=== PATIENT | female | born 1985 | race Two or more races ===

== ENCOUNTER 2016-09-29 20:42 | Emergency (ER) | payer MEDICAID, OTHER ==
[2016-09-29] MEDS ORDERED: CEPHALEXIN 500 MG CAPSULE PO ONE (22:36)
[2016-09-29] MEDS ORDERED: SULFAMETHOXAZOLE/TRIMETHOPRIM 800-160 MG TABLET PO ONE (22:36)
[2016-09-29] MEDS ORDERED: PROCHLORPERAZINE MALEATE 10 MG TABLET PO ONE (23:07)
--- NOTE | 2016-09-29 23:12 | ER Document Report ---
ED ENT - General Chief Complaint: Sore Throat Stated Complaint: SORE THROAT Time Seen by Provider: 09/29/16 22:23 Mode of Arrival: Ambulatory Information source: Patient Notes: 30-year-old female presented to ED for sore throat headache runny nose pain in her left wisdom tooth body aches an abscess in her left axilla she said that all of the sinus symptoms started yesterday but the abscess she noted last . TRAVEL OUTSIDE OF THE [place] IN LAST 30 DAYS: No - HPI Patient complains to provider of: Dental problem, Ear problem, Nose problem, Throat problem, Other - Abscess left axilla Onset: Other - See above note Onset/Duration: Gradual Quality of pain: Achy - Bodyaches headache, Sharp - Abscess to left axilla Severity: Moderate Pain Level: 4 Context: Recent Illness Location of pain: Ears, Jaw, Nose, Sinus, Tooth, Other - Abscess left axilla Associated symptoms: Ear pain, Headache, Runny nose, Sinus pain, Sinus drainage , Sore throat, Other Similar symptoms previously: Yes Recently seen / treated by doctor: No - Related Data Allergies/Adverse Reactions: No Known Allergies Allergy (Unverified 09/29/16 21:22) Past Medical History - General Information source: Patient - Social History Smoking Status: Never Smoker Cigarette use (# per day): No Chew tobacco use (# tins/day): No Smoking Education Provided: No Frequency of alcohol use: None Drug Abuse: None Occupation: call center Lives with: Family Family History: Arthritis, CAD, COPD, CVA, Hyperlipidemia, Hypertension, Thyroid Disfunction Patient has suicidal ideation: No Patient has homicidal ideation: No - Past Medical History Cardiac Medical History: Reports: None Pulmonary Medical History: Reports: None EENT Medical History: Reports: None Neurological Medical History: Reports: Hx Migraine Endocrine Medical History: Reports: None Renal/ Medical History: Reports: None Malignancy Medical History: Reports: None GI Medical History: Reports: None Musculoskeltal Medical History: Reports None Skin Medical History: Reports None Psychiatric Medical History: Reports: None Traumatic Medical History: Reports: None Infectious Medical History: Reports: None Past Surgical History: Reports: Hx Adenoidectomy, Hx Tonsillectomy, Hx Tubal Ligation Review of Systems - Review of Systems Constitutional: No symptoms reported EENT: No symptoms reported Cardiovascular: No symptoms reported Respiratory: No symptoms reported Gastrointestinal: No symptoms reported Genitourinary: No symptoms reported Female Genitourinary: No symptoms reported Musculoskeletal: No symptoms reported Skin: No symptoms reported Hematologic/Lymphatic: No symptoms reported Neurological/Psychological: No symptoms reported -: Yes All other systems reviewed and negative Physical Exam - Vital signs Vitals: Temp Pulse Resp BP Pulse Ox 98.4 F 74 16 103/81 100 09/29/16 21:18 09/29/16 21:18 09/29/16 21:18 09/29/16 21:18 09/29/16 21:18 Interpretation: Normal - General General appearance: Appears well, Alert - HEENT Head: Normocephalic, Atraumatic Eyes: Normal Pupils: PERRL Ears: Normal External canal: Normal Tympanic membrane: Normal Sinus: Normal Nasal: Swelling, Clear rhinorrhea Mouth/Lips: Normal Mucous membranes: Normal Teeth diagram: 1 - Swelling to the gums around the left lower wisdom tooth #17 Pharynx: Post nasal drainage Neck: Normal - Respiratory Respiratory status: No respiratory distress Chest status: Nontender Breath sounds: Normal Chest palpation: Normal - Cardiovascular Rhythm: Regular Heart sounds: Normal auscultation Murmur: No - Abdominal Inspection: Normal Distension: No distension Bowel sounds: Normal Tenderness: Nontender Organomegaly: No organomegaly - Back Back: Normal, Nontender - Extremities General upper extremity: Normal inspection, Nontender, Normal color, Normal ROM , Normal temperature General lower extremity: Normal inspection, Nontender, Normal color, Normal ROM , Normal temperature, Normal weight bearing. No: Jose's sign - Neurological Neuro grossly intact: Yes Cognition: Normal Orientation: AAOx4 [place] Coma Scale Eye Opening: Spontaneous [place] Coma Scale Verbal: Oriented [place] Coma Scale Motor: Obeys Commands [place] Coma Scale Total: 15 Speech: Normal Motor strength normal: LUE, RUE, LLE, RLE Sensory: Normal - Psychological Associated symptoms: Normal affect, Normal mood - Skin Skin Temperature: Warm Skin Moisture: Dry Skin Color: Normal Skin irregularity: Abscess - Very minimal abscess in the left axilla Irregularity with: Swelling, Tenderness, Warmth Course - Re-evaluation Re-evalutation: 09/30/16 03:33 Instructed patient on use of warm compresses to the area as well as washing the area well with soap and water. Please refrain from using any scented products in this area until the abscess is healed. Recommended Dial soap as it is antibacterial. We'll start patient on Bactrim and Keflex. Patient also given Compazine instructed to take Benadryl when she gets home or a headache. Patient also given a prescription for Compazine for her to take with Benadryl and ibuprofen when she gets a migraine in the future. - Vital Signs Vital signs: Temp Pulse Resp BP Pulse Ox 97.4 F 64 17 107/66 100 09/29/16 23:27 09/29/16 23:27 09/29/16 23:27 09/29/16 23:27 09/29/16 23:27 Discharge - Discharge Clinical Impression: Sore throat, Abscess of left axilla, dental pain wisdom tooth URI (upper respiratory infection) Qualifiers: URI type: unspecified URI Qualified Code(s): J06.9 - Acute upper respiratory infection, unspecified Headache Qualifiers: Headache type: unspecified Headache chronicity pattern: unspecified pattern Intractability: not intractable Qualified Code(s): R51 - Headache Condition: Stable Disposition: HOME, SELF-CARE Instructions: Family Physicians / Practices, Dentist Additional Instructions: SORE THROAT: Sore throats may be caused by viruses, bacteria, or fungi. Most are due to a virus, and must get better on their own. Bacterial sore throats, particularly those due to "strep," need treatment with antibiotics. If an antibiotic is prescribed, be sure to take the medication for a full 10 days. Failure to take the antibiotic can result in complications such as rheumatic fever. Sometimes, an injection of antibiotics is given instead of pills or liquid. This single "shot" is equal in effectiveness to the oral medication. To relieve symptoms, take acetaminophen for pain. Sip clear liquids frequently, or eat popsicles or ice chips. Anesthetic sprays or lozenges may help. Make sure the air in the room is not too dry. Avoid using decongestants or antihistamines. Call the doctor if there is no improvement in two days, or if you have difficulty breathing, increasing throat pain, high fever, rash, or frequent vomiting. TOOTHACHE: Your pain is crowding of teeth. The tooth must be repaired in order for you to feel better. You will, therefore, be referred to a dentist. We do not have dentists on the staff at [facility]. Severe swelling or drainage around a tooth usually means a dental abscess. This also requires evaluation and treatment by the dentist, but antibiotics may be prescribed while awaiting dental treatment. You should be rechecked immediately if you develop major swelling of the face, increasing pain, a lump in the jaw or gums, headache, difficulty swallowing, or fever. VIRAL SYNDROME: The physician has diagnosed a likely viral infection. Viruses not only cause "colds," but can cause many different symptoms including generalized aching, fever, headache, cough, diarrhea, nausea, vomiting, and fatigue. The treatment, for the most part, is simply relief of symptoms. This means that antibiotics are usually not given. Rest, fluids, pain medications and, occasionally, medication for the specific symptoms that are most bothersome will be prescribed. Use good handwashing to avoid passing the virus to others. Shared toys should be cleaned with disinfectant. Clean the toilets, sinks, and counter surfaces in bathrooms. Launder clothing in hot water. Contact the physician if you develop any new or unusual symptoms such as severe headache, stiff neck, high fever, chest pain, productive cough, or shortness of breath. You should be rechecked if you don't see marked improvement within seven to 10 days. ABSCESS: You have an abscess (boil). This a pus-forming infection, usually due to staph. Some boils may be left to drain on their own, but most require lancing. From the time the tender lump first appears, it may be three or four days before the abscess is ready to shelby. Local heat and rest help at this stage of treatment. An antibiotic may prevent spread of the infection. Once the abscess is opened, packing may be placed into it. This is done so pus is not sealed inside by premature closure of the cavity. The packing will be removed at your follow-up visit or you may be advised to remove it yourself at home. Sometimes this packing must be replaced a few times during healing. The wound will heal with surprisingly little scar. Depending on the size and location of an abscess, healing can take one to four weeks. You may shower and wash the area around the incision site two or three times a day. Antibiotics may be prescribed, but are usually not necessary after an abscess has been drained. If you develop fever, chills, worsening pain, or increasing swelling in the area, call the doctor or return immediately. CEPHALEXIN: The antibiotic you've been prescribed is a member of the cephalosporin class. This type of antibiotic covers a wide variety of infections, including those of the skin, lungs, and urinary tract. It's useful for staph infections. This antibiotic is slightly similar to the penicillin family. In rare cases , a person who is allergic to penicillin will also be allergic to this medication. If you have had a severe allergic reaction to penicillin, and have not taken this antibiotic since that time, notify your doctor. Antibiotics which cover many germs ("broad spectrum" antibiotics) are more likely to cause diarrhea or "yeast" infections. Women prone to vaginal yeast problems may suffer an attack after taking this antibiotic. In infants, oral thrush (white spots "stuck" on the cheek) or yeast diaper rash may result. See your doctor if these problems occur. Call at once if you develop itching, hives , shortness of breath, or lightheadedness. TRIMETHOPRIM-SULFA: You have been given a prescription for trimethoprim-sulfa (TMS, Septra, Bactrim). This is a combination antibiotic of the sulfa class, often used for urinary tract infections, middle ear infections, bronchitis, shigella intestinal infection, and Pneumocystis pneumonia. TMS is usually well-tolerated. Occasional side effects include nausea and decreased appetite. Septra is not recommended for infants less than two months of age. Do not take this medication if you have experienced severe side effects or allergy to sulfa medicine. You should stop this medicine at once and contact your physician if you develop any rash, joint pain, shortness of breath, bruising, or jaundice ( yellow color in the skin), or if you develop any other new or unusual symptoms. USE OF ACETAMINOPHEN (Tylenol): Acetaminophen may be taken for pain relief or fever control. It's much safer than aspirin, offering a wider range of "safe" dosages. It is safe during . Some brand names are Tylenol, Panadol, Datril, Anacin 3, Tempra, and Liquiprin. Acetaminophen can be repeated every four hours. The following are maximum recommended dosages: WEIGHT Dose Drops Elixir Chewable( 80mg) (LBS.) drprs=droppers tsp=teaspoon 6 40 mg 0.4 ml (1/2) 6-11 80 mg 0.8 ml (full) tsp 1 tab 12-16 120 mg 1 1/2 drprs 3/4 tsp 1 1/2 tabs 17-23 160 mg 2 drprs 1 tsp 2 tabs 24-30 240 mg 3 drprs 1 1/2 tsp 3 tabs 30-35 320 mg 2 tsp 4 tabs 36-41 360 mg 2 1/4 tsp 4 1/2 tabs 42-47 400 mg 2 1/2 tsp 5 tabs 48-53 480 mg 3 tsp 6 tabs 54-59 520 mg 3 1/4 tsp 6 1/2 tabs 60-64 560 mg 3 1/2 tsp 7 tabs 65-70 600 mg 3 3/4 tsp 7 1/2 tabs 71-76 640 mg 4 tsp 8 tabs 77-82 720 mg 4 1/2 tsp 9 tabs 83-88 800 mg 5 tsp 10 tabs >89 pounds or adults 650 mg to 900 mg Acetaminophen can be repeated every four hours. Maximum dose not to exceed 4000 mg a day. These maximum recommended dosages are slightly higher than the dosages written on the product container, but these dosages are very safe and below the toxic dosage for acetaminophen. FOLLOW-UP CARE: If you have been referred to a physician for follow-up care, call the physician s office for an appointment as you were instructed or within the next two days. If you experience worsening or a significant change in your symptoms, notify the physician immediately or return to the Emergency Department at any time for re-evaluation. Prescriptions: Prochlorperazine Maleate [Compazine 10 mg Tablet] 10 mg PO Q6HP PRN #10 tablet PRN Reason: Cephalexin Monohydrate [Keflex 500 mg Capsule] 500 mg PO QID #20 capsule Sulfamethoxazole/Trimethoprim [Septra-Ds 800-160 mg Tablet] 1 tab PO BID #14 tablet Forms: Return to Work
[2016-09-29 23:31] VITALS: BP 107/66
== END 2016-09-29 23:30 | disposition home or self-care (01) ==
LOC: ER 20:42
DX: J02.9 Acute pharyngitis, unspecified (principal); L02.412 Cutaneous abscess of left axilla; K08.89 Other specified disorders of teeth and supporting structures; J06.9 Acute upper respiratory infection, unspecified; R51 Headache; H92.09 Otalgia, unspecified ear
CPT/HCPCS: 99283; 87070; 87880; S0183; J3490

== ENCOUNTER 2017-04-12 15:51 | Emergency (ER) | payer SELFPAY ==
--- NOTE | 2017-04-12 16:45 | ER Document Report ---
ED Medical Screen (RME) - General Chief Complaint: Abdominal and back pain Stated Complaint: ABDOMINAL,BACK PAIN Time Seen by Provider: 04/12/17 16:44 Notes: Patient states she has a painful lump on her right low back, she has sore throat and congestion and swollen adenoids. She also states she has some vaginal discharge and is concerned about a 60 transmitted disease. TRAVEL OUTSIDE OF THE [place] IN LAST 30 DAYS: No - Related Data Allergies/Adverse Reactions: No Known Allergies Allergy (Verified 03/16/17 20:27) Past Medical History - Social History Chew tobacco use (# tins/day): No Frequency of alcohol use: None Drug Abuse: None Neurological Medical History: Reports: Hx Migraine Renal/ Medical History: Denies: Hx Peritoneal Dialysis Past Surgical History: Reports: Hx Adenoidectomy, Hx Tonsillectomy, Hx Tubal Ligation - Immunizations Immunizations up to date: Yes Hx Diphtheria, Pertussis, Tetanus Vaccination: Yes Physical Exam - Vital signs Vitals: Temp Pulse Resp BP Pulse Ox 98.6 F 80 16 123/69 99 04/12/17 15:57 04/12/17 15:57 04/12/17 15:57 04/12/17 15:57 04/12/17 15:57 Course - Vital Signs Vital signs: Temp Pulse Resp BP Pulse Ox 98.6 F 80 16 123/69 99 04/12/17 15:57 04/12/17 15:57 04/12/17 15:57 04/12/17 15:57 04/12/17 15:57
[2017-04-12 17:10] LABS: ABSOLUTE BASOPHILS # (AUTO) 0.1 10^3/uL (0.0-0.2); ABSOLUTE EOSINOPHILS # (AUTO) 0.2 10^3/uL (0.0-0.6); ABSOLUTE LYMPHOCYTES (AUTO) 2.1 10^3/uL (0.5-4.7); ABSOLUTE MONOCYTES (AUTO) 0.7 10^3/uL (0.1-1.4); ABSOLUTE NEUT (AUTO) 6.5 10^3/uL (1.7-8.2); BASOPHILS % (AUTO) 0.9 % (0-2); EOSINOPHILS % (AUTO) 2.2 % (0-6); HEMATOCRIT 40.2 % (36.0-47.0); HGB HCT DIFFERENCE 1.8; LYMPHOCYTES % (AUTO) 21.4 % (13-45); MEAN CORPUSCULAR HEMOGLOBIN 29.4 pg (27.0-33.4); MEAN CORPUSCULAR HGB CONC 34.7 g/dL (32.0-36.0); MEAN CORPUSCULAR VOLUME 85 fl (80-97); MONOCYTES % (AUTO) 7.7 % (3-13); RED BLOOD COUNT 4.75 10^6/uL (3.72-5.28); RED CELL DISTRIBUTION WIDTH 13.6 % (11.5-14.0); SEGMENTED NEUTROPHILS % (AUTO) 67.8 % (42-78); WHITE BLOOD COUNT 9.6 10^3/uL (4.0-10.5)
[2017-04-12] MEDS ORDERED: KETOROLAC TROMETHAMINE 60 MG/2 ML SDV IM ONE (17:19)
[2017-04-12] MEDS ORDERED: ONDANSETRON 4 MG TAB.RAPDIS SL ONE (17:19)
[2017-04-12 17:22] LABS: APPEARANCE,URINE CLEAR; BILIRUBIN,URINE NEGATIVE (NEGATIVE); GLUCOSE, URINE NEGATIVE (NEGATIVE); KETONES,URINE NEGATIVE (NEGATIVE); LEUKOCYTE ESTERASE,URINE NEGATIVE (NEGATIVE); NITRITE,URINE NEGATIVE (NEGATIVE); PROTEIN,URINE NEGATIVE (NEGATIVE); URINE SPECIFIC GRAVITY 1.017; UROBILINOGEN,URINE NEGATIVE mg/dL (<2.0)
[2017-04-12 17:34] LABS: ALANINE AMINOTRANSFERASE 30 U/L (9-52); ALBUMIN 4.6 g/dL (3.5-5.0); ALKALINE PHOSPHATASE 64 U/L (38-126); ANION GAP 13 (5-19); ASPARTATE AMINO TRANSFERASE 17 U/L (14-36); BILIRUBIN,DIRECT 0.2 mg/dL (0.0-0.4); BILIRUBIN,TOTAL 0.4 mg/dL (0.2-1.3); BLOOD UREA NITROGEN 10 mg/dL (7-20); CALCIUM 9.3 mg/dL (8.4-10.2); CARBON DIOXIDE 29 mmol/L (22-30); CHLORIDE 103 mmol/L (98-107); CREATININE RESULT 0.76 mg/dL (0.52-1.25); GLUCOSE 88 mg/dL (75-110); POTASSIUM 4.1 mmol/L (3.6-5.0); SODIUM 144.7 mmol/L (137-145); TOTAL PROTEIN 7.5 g/dL (6.3-8.2)
[2017-04-12] MEDS ORDERED: IBUPROFEN 600 MG TABLET PO ONE (17:51)
[2017-04-12] MEDS ORDERED: METRONIDAZOLE 500 MG TABLET PO ONE (17:51)
--- NOTE | 2017-04-12 17:53 | RADIOLOGY REPORT (SQ) ---
EXAM DESCRIPTION: CHEST PA/LAT COMPLETED DATE/TIME: 04/12/2017 5:44 pm REASON FOR STUDY: cough COMPARISON: None. EXAM PARAMETERS: NUMBER OF VIEWS: two views TECHNIQUE: Digital Frontal and Lateral radiographic views of the chest acquired. RADIATION DOSE: NA LIMITATIONS: none FINDINGS: LUNGS AND PLEURA: No opacities, masses or pneumothorax. No pleural effusion. MEDIASTINUM AND HILAR STRUCTURES: No masses or contour abnormalities. HEART AND VASCULAR STRUCTURES: Heart normal size. No evidence for failure. BONES: No acute findings. HARDWARE: None in the chest. OTHER: No other significant finding. IMPRESSION: NO SIGNIFICANT RADIOGRAPHIC FINDING IN THE CHEST. TECHNICAL DOCUMENTATION: JOB ID: [id number]- All Rights Reserved
[2017-04-12 20:12] LABS: CHLAM PCR NOT DETECTED (NOT DETECT)
--- NOTE | 2017-04-12 20:40 | ER Document Report ---
ED General - General Chief Complaint: Abdominal and back pain Stated Complaint: ABDOMINAL,BACK PAIN Time Seen by Provider: 04/12/17 16:44 Mode of Arrival: Ambulatory Information source: Patient TRAVEL OUTSIDE OF THE [place] IN LAST 30 DAYS: No - HPI Patient complains to provider of: Back pain, right side pain, congestion, fever , vomiting and diarrhea Onset: Last week Onset/Duration: Gradual Quality of pain: Achy Severity: Moderate Pain Level: 3 Associated symptoms: Body/muscle aches, Chills, Productive cough, Diarrhea, Fever, Nausea, Vomiting Exacerbated by: Denies Relieved by: Denies Similar symptoms previously: Yes Recently seen / treated by doctor: Yes - 1 month ago Notes: Patient is a 31-year-old female who presents to the emergency room today with a multitude of complaints which include right lower back pain with "knot in low back", cough, cold, congestion, swollen lymph nodes, fever of 102 yesterday, cough is nonproductive, vomiting and diarrhea yesterday, and vaginal discharge with an odor this been going on for the past few days, she was seen in this department approximately 1 month ago and placed on antibiotics for treatment of urinary tract infection which she reports she has not really had any relief from where she is also requesting testing for sexually transmitted disease - Related Data Allergies/Adverse Reactions: No Known Allergies Allergy (Verified 03/16/17 20:27) Past Medical History - General Information source: Patient - Social History Smoking Status: Never Smoker Chew tobacco use (# tins/day): No Frequency of alcohol use: None Drug Abuse: None Family History: Arthritis, CAD, COPD, CVA, Hyperlipidemia, Hypertension, Thyroid Disfunction Patient has suicidal ideation: No Patient has homicidal ideation: No Neurological Medical History: Reports: Hx Migraine Renal/ Medical History: Denies: Hx Peritoneal Dialysis Past Surgical History: Reports: Hx Adenoidectomy, Hx Tonsillectomy, Hx Tubal Ligation - Immunizations Immunizations up to date: Yes Hx Diphtheria, Pertussis, Tetanus Vaccination: Yes Review of Systems - Review of Systems Constitutional: Chills, Fever EENT: See HPI Cardiovascular: No symptoms reported Respiratory: See HPI Gastrointestinal: See HPI Genitourinary: See HPI Female Genitourinary: See HPI Musculoskeletal: See HPI Skin: No symptoms reported Hematologic/Lymphatic: No symptoms reported Neurological/Psychological: No symptoms reported -: Yes All other systems reviewed and negative Physical Exam - Vital signs Vitals: Temp Pulse Resp BP Pulse Ox 98.6 F 80 16 123/69 99 04/12/17 15:57 04/12/17 15:57 04/12/17 15:57 04/12/17 15:57 04/12/17 15:57 Interpretation: Normal - General General appearance: Appears well, Alert In distress: None - HEENT Head: Normocephalic, Atraumatic Eyes: Normal Conjunctiva: Normal Extraocular movements intact: Yes Eyelashes: Normal Pupils: PERRL Ears: Normal Sinus: Normal Nasal: Clear rhinorrhea Mouth/Lips: Normal Mucous membranes: Normal Pharynx: Normal Neck: Lymphadenopathy - Respiratory Respiratory status: No respiratory distress Chest status: Nontender Breath sounds: Normal Chest palpation: Normal - Cardiovascular Rhythm: Regular Heart sounds: Normal auscultation Murmur: No - Abdominal Inspection: Normal Distension: No distension Bowel sounds: Normal Tenderness: Nontender Organomegaly: No organomegaly - Genitourinary External exam: Normal Speculum exam: Vaginal discharge - Green frothy discharge with fishy odor Vaginal bleeding: None Bimanuel exam: Normal - Back Back: Normal, Tender - Tender to palpate in the right lumbar paraspinal musculature with slight muscle tension in the piriformis correlating to where patient states she has "knot" - Extremities General upper extremity: Normal inspection, Nontender, Normal color, Normal ROM , Normal temperature General lower extremity: Normal inspection, Nontender, Normal color, Normal ROM , Normal temperature, Normal weight bearing. No: Jose's sign - Neurological Neuro grossly intact: Yes Cognition: Normal Orientation: AAOx4 [place] Coma Scale Eye Opening: Spontaneous [place] Coma Scale Verbal: Oriented [place] Coma Scale Motor: Obeys Commands [place] Coma Scale Total: 15 Speech: Normal Motor strength normal: LUE, RUE, LLE, RLE Sensory: Normal - Psychological Associated symptoms: Normal affect, Normal mood - Skin Skin Temperature: Warm Skin Moisture: Dry Skin Color: Normal Course - Re-evaluation Re-evalutation: 04/12/17 22:31 Lab findings were discussed with patient at bedside which are unremarkable, physical exam findings are consistent with bacterial vaginosis, patient was started on Flagyl, advised to follow-up with primary care provider or return if symptoms worsen, patient acknowledges understanding and agreement with this plan - Vital Signs Vital signs: Temp Pulse Resp BP Pulse Ox 98.6 F 72 16 112/55 L 98 04/12/17 20:51 04/12/17 20:51 04/12/17 20:51 04/12/17 20:51 04/12/17 20:51 - Laboratory Result Diagrams: 04/12/17 16:59 04/12/17 16:59 Laboratory results interpreted by me: 04/12/17 17:06 Urine Ascorbic Acid 40 H - Diagnostic Test Radiology reviewed: Image reviewed, Reports reviewed Discharge - Discharge Clinical Impression: Bacterial vaginosis Condition: Stable Disposition: HOME, SELF-CARE Instructions: Antibiotic Therapy ([facility]), Metronidazole ([facility]), [employer], Vaginosis, Bacterial ([facility]) Additional Instructions: Follow up with your primary care provider in one to 2 days. Return to the emergency room immediately if symptoms worsen or any additional concerns. Prescriptions: Ibuprofen [Motrin 600 Mg Tablet] 600 mg PO TID #30 tablet Metronidazole [Flagyl 500 mg Tablet] 500 mg PO TID #30 tablet
[2017-04-12 20:52] VITALS: BP 112/55
== END 2017-04-12 20:52 | disposition home or self-care (01) ==
LOC: ER 15:51
DX: N76.0 Acute vaginitis (principal); B96.89 Other specified bacterial agents as the cause of diseases classified elsewhere; R50.9 Fever, unspecified; R11.10 Vomiting, unspecified; R19.7 Diarrhea, unspecified; M54.5 Low back pain; R05 Cough; J34.89 Other specified disorders of nose and nasal sinuses; Z87.440 Personal history of urinary (tract) infections; Z98.51 Tubal ligation status
CPT/HCPCS: 99284; 96372; 36415; 87210; 85025; 81025; 80053; 81001; 87491; 87591; 71020; J1885; S0119

== ENCOUNTER 2018-04-23 04:50 | Emergency (ER) | payer MEDICAID ==
[2018-04-23] MEDS ORDERED: ACETAMINOPHEN 325 MG TABLET PO ONE (05:32)
--- NOTE | 2018-04-23 05:56 | RADIOLOGY REPORT (SQ) ---
CLINICAL DATA: 32-year-old female status post fall TECHNICAL DATA: Multiple high-resolution thin axial CT images were performed through the cervical spine followed by sagittal and coronal reconstructed images. The CT study is performed according to ALARA (as low as reasonably achievable) or ALARA/IMAGE GENTLY, with automatic adjustment of mA and/or kV according to patient size. Performed on: 04/23/2018 at 5:40 AM COMPARISONS: None. FINDINGS: The cervical vertebrae are normal in height. There is straightening and very slight reversal of the normal cervical lordosis. The disc spaces are well preserved in height. Bone mineralization is normal. The atlanto-axial articulation is preserved and the odontoid process is intact. There is normal alignment of the facet joints on the parasagittal images. There are no significant degenerative changes of the cervical spine. There is no evidence of acute fracture or subluxation. There is no significant canal stenosis. There is no significant neural foraminal stenosis. The paravertebral and paraspinal soft tissues are unremarkable. The lung apices are clear. IMPRESSION: 1. No evidence of acute osseous injury involving the cervical spine. 2. There is straightening and slight reversal of the normal cervical lordosis which can be seen with muscle spasm or patient positioning.
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
--- NOTE | 2018-04-23 05:58 | RADIOLOGY REPORT (SQ) ---
EXAM DESCRIPTION: CT HEAD WITHOUT IV CONTRAST COMPLETED DATE/TME: 04/23/2018 05:29 CLINICAL HISTORY: 32 years, Female, pain, fall COMPARISON: None. TECHNIQUE: 177 Images stored on PACS. All CT scanners at this facility use dose modulation, iterative reconstruction, and/or weight based dosing when appropriate to reduce radiation dose to as low as reasonably achievable (ALARA). [facility]: Dose Right [facility]: CareDose [facility]: Dose Right [facility]: Teradose 4D [facility]: [employer] LIMITATIONS: None. FINDINGS: The globes are intact. The paranasal sinuses and mastoid air cells are unremarkable. There is no displaced or depressed skull fracture. There is no intra or extra-axial hemorrhage. CT is limited for evaluation of acute infarct. No CT evidence for large or territorial acute infarct. No mass or midline shift. IMPRESSION: Negative exam TECHNICAL DOCUMENTATION: Quality ID # [id number]: Final reports with documentation of one or more dose reduction techniques (e.g., Automated exposure control, adjustment of the mA and/or kV according to patient size, use of iterative reconstruction technique) copyright 2011 [employer]- All Rights Reserved
--- NOTE | 2018-04-23 06:21 | RADIOLOGY REPORT (SQ) ---
EXAM DESCRIPTION: XR RIBS BILATERAL WITH CHEST COMPLETED DATE/TME: 04/23/2018 05:29 CLINICAL HISTORY: 32 years, Female, pain COMPARISON: None. NUMBER OF VIEWS: Frontal view the chest with 5 views of the bilateral ribs TECHNIQUE: View the chest and 5 views of bilateral ribs LIMITATIONS: None. FINDINGS: Heart size is normal. Lungs are clear. No pneumothorax. Negative for rib fracture. Soft tissues are unremarkable IMPRESSION: Negative exam copyright 2010 [employer]- All Rights Reserved
[2018-04-23] MEDS ORDERED: KETOROLAC TROMETHAMINE 60 MG/2 ML SDV IM ONE (06:31)
[2018-04-23 06:49] VITALS: BP 121/84
== END 2018-04-23 07:12 | disposition home or self-care (01) ==
LOC: ER 04:50
DX: S00.03XA Contusion of scalp, initial encounter (principal); S40.022A Contusion of left upper arm, initial encounter; S40.021A Contusion of right upper arm, initial encounter; S80.12XA Contusion of left lower leg, initial encounter; S80.11XA Contusion of right lower leg, initial encounter; R51 Headache; R07.81 Pleurodynia; M54.2 Cervicalgia; W18.2XXA Fall in (into) shower or empty bathtub, initial encounter; Z91.013 Allergy to seafood; F17.210 Nicotine dependence, cigarettes, uncomplicated
CPT/HCPCS: 99284; 96372; 71111; 70450; 72125; J1885

== ENCOUNTER 2018-05-03 02:29 | Emergency (ER) | payer OTHER, MEDICAID ==
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
== END 2018-05-03 02:55 ==
LOC: ER 02:29
DX: F10.129 Alcohol abuse with intoxication, unspecified (principal); R45.6 Violent behavior
CPT/HCPCS: 99284

== ENCOUNTER 2019-02-04 16:48 | Emergency (ER) | payer MEDICAID, OTHER ==
[2019-02-04 16:56] VITALS: BP 136/65
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
[2019-02-04] MEDS ORDERED: HYDROCODONE/ACETAMINOPHEN 5-325 MG (6 TAB/ER DISP) PO PRN (20:41)
[2019-02-04] MEDS ORDERED: CYCLOBENZAPRINE HCL 10 MG TABLET PO ONE (20:41)
[2019-02-04] MEDS ORDERED: OXYCODONE-ACETAMINOPHEN 5-325 MG TABLET PO ONE (20:41)
[2019-02-04] MEDS ORDERED: ONDANSETRON ODT 4 MG TAB (6 TAB/ER DISP) PO PRN (20:41)
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
== END 2019-02-04 20:55 | disposition home or self-care (01) ==
LOC: ER 16:48
DX: S93.402A Sprain of unspecified ligament of left ankle, initial encounter (principal); S40.022A Contusion of left upper arm, initial encounter; S40.021A Contusion of right upper arm, initial encounter; M79.601 Pain in right arm; M79.602 Pain in left arm; M54.2 Cervicalgia; M25.572 Pain in left ankle and joints of left foot; Y04.2XXA Assault by strike against or bumped into by another person, initial encounter; Y08.89XA Assault by other specified means, initial encounter; F17.200 Nicotine dependence, unspecified, uncomplicated; F12.10 Cannabis abuse, uncomplicated
CPT/HCPCS: 73610; 70450; 70486; 72125; L0120; L4350; 99284

== ENCOUNTER 2019-11-06 11:13 | Emergency (ER) | payer OTHER, MEDICAID ==
[2019-11-06] MEDS ORDERED: MORPHINE SULFATE 10 MG/ML INJ IV ONE (11:48)
[2019-11-06] MEDS ORDERED: ONDANSETRON HCL INJ/PF 4 MG/2 ML SDV IV ONE (11:48)
--- NOTE | 2019-11-06 11:58 | ER Document Report ---
ED GI/ - General Chief Complaint: Nausea/Vomiting Stated Complaint: NAUSEA/VOMITING Time Seen by Provider: 11/06/19 11:23 Notes: CHIEF COMPLAINT: Left lower quadrant pain HPI: 33-year-old female presenting to the emergency department complaining of progressively worsening left lower quadrant pain also with left upper quadrant pain and some nausea vomiting today. Patient had a LEEP procedure September 25, states she felt fine over the initial first 2 to 3 weeks but has been having progressively worsening pain in the left lower quadrant left pelvis region. No abnormal vaginal bleeding or discharge. Patient has not had a fever. She has not seen her FOLDER MACHINE OPERATOR for reevaluation. States she had the procedure done at [facility]. ROS: See HPI - all other systems were reviewed and are otherwise negative Constitutional: no fever or recent illness Eyes: no drainage, no blurred vision ENT: no runny nose, no sore throat Cardiovascular: no chest pain Resp: no SOB, no cough GI: + vomiting, no diarrhea, positive abdominal pain and pelvic pain : no dysuria, no vaginal discharge Integumentary: no rash Allergy: no hives Musculoskeletal: no extremity pain or swelling Neurological: no numbness/tingling, no weakness MEDICATIONS: I agree with the patient medications as charted by the RN. ALLERGIES: I agree with the allergies as charted by the RN. PAST MEDICAL HISTORY/PAST SURGICAL HISTORY: Reviewed and agree as charted by RN. SOCIAL HISTORY: Reviewed and agree as charted by RN. FAMILY HISTORY: No significant familial comorbid conditions directly related to patient complaint EXAM: Reviewed vital signs as charted by RN. CONSTITUTIONAL: Alert and oriented and responds appropriately to questions. Well-appearing; well-nourished HEAD: Normocephalic; atraumatic EYES: PERRL; Conjunctivae clear, sclerae non-icteric ENT: normal nose; no rhinorrhea; moist mucous membranes; pharynx without lesions noted NECK: Supple without meningismus; non-tender; no cervical lymphadenopathy, no masses CARD: RRR; no murmurs, no clicks, no rubs, no gallops; symmetric distal pulses RESP: Normal chest excursion without splinting or tachypnea; breath sounds clear and equal bilaterally; no wheezes, no rhonchi, no rales, pulse oximetry 98% on room air not hypoxic ABD/GI: Normal bowel sounds; non-distended; soft, there is some tenderness in the left upper quadrant region but moderate tenderness in the left lower quadrant region on palpation, no rebound, no guarding; no palpable organomegaly or masses : 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 External genitalia normal. No skin lesions noted. Pelvic Exam: No active bleeding. Small amount of a thin white discharge. Cervix appears normal. Mild cMT. No lesions or masses. Uterus normal size and mildly tender. Right/Left adnexa normal size and moderately tender on the left BACK: The back appears normal and is non-tender to palpation, there is no CVA tenderness EXT: Normal ROM in all joints; non-tender to palpation; no cyanosis, no effusions, no edema SKIN: Normal color for age and race; warm; dry; good turgor; no acute lesions noted NEURO: Moves all extremities equally; Motor and sensory function intact PSYCH: The patient's mood and manner are appropriate. Grooming and personal hygiene are appropriate. MDM: 33-year-old female left pelvic pain over the last 3 to 4 days, had a LEEP procedure done 6 weeks ago and had felt fine for 2 to 3 weeks afterwards. Will initially obtain pelvic ultrasound to evaluate left ovary and ovarian structures. She has mild tenderness in the left upper quadrant region if ultrasound does not show definitive reason for her discomfort will proceed with CT TRAVEL OUTSIDE OF THE [place] IN LAST 30 DAYS: No - Related Data Allergies/Adverse Reactions: No Known Allergies Allergy (Verified 03/16/17 20:27) Past Medical History - Social History Smoking Status: Unknown if Ever Smoked Family History: Arthritis, CAD, COPD, CVA, Hyperlipidemia, Hypertension, Thyroid Disfunction Neurological Medical History: Reports: Hx Migraine Renal/ Medical History: Denies: Hx Peritoneal Dialysis Psychiatric Medical History: Reports: Hx Depression Past Surgical History: Reports: Hx Adenoidectomy, Hx Tonsillectomy, Hx Tubal Ligation - Immunizations Immunizations up to date: Yes Hx Diphtheria, Pertussis, Tetanus Vaccination: Yes Physical Exam - Vital signs Vitals: Temp 98.1 F 11/06/19 11:14 Course - Re-evaluation Re-evalutation: 11/06/19 13:29 U/S does not show definitive reason for the patient's pain, will proceed with CT 11/06/19 15:40 CT does not show definitive abnormalities that would suggest a definitive cause for pain. This was discussed with the patient. She does have vaginitis we will place her on Flagyl. We will write her a short course of pain medication and anti-inflammatories refer back to her FOLDER MACHINE OPERATOR at the health department for reevaluation she is in agreement with this plan return instructions discussed - Vital Signs Vital signs: Temp Pulse Resp BP Pulse Ox 98.3 F 92 17 114/62 98 11/06/19 11:47 11/06/19 11:47 11/06/19 11:47 11/06/19 11:47 11/06/19 11:47 - Laboratory Result Diagrams: 11/06/19 12:00 11/06/19 12:00 Laboratory results interpreted by me: 11/06/19 11/06/19 12:00 12:00 WBC 12.0 H Lymph % (Auto) 12.9 L [place] % (Auto) 2.5 L Absolute Neuts (auto) 10.1 H Seg Neutrophils % 84.0 H Calcium 10.3 H Total Protein 9.3 H Albumin 5.6 H Discharge - Discharge Clinical Impression: Abdominal pain, left lower quadrant, Pelvic pain in female, Bacterial vaginitis Condition: Stable Disposition: HOME, SELF-CARE Additional Instructions: Medication as prescribed, take the Flagyl for the vaginitis. Take the pain medications as prescribed no driving if taking narcotics for pain. Follow-up closely with your FOLDER MACHINE OPERATOR at the health department for further evaluation and treatment of her symptoms call for appointment return for onset of fever greater than 101 or worsening symptoms Prescriptions: Tramadol HCl [Ultram 50 mg Tablet] 50 mg PO Q6HP PRN #12 tab PRN Reason: Metronidazole [Flagyl 500 mg Tablet] 500 mg PO BID #14 tablet Diclofenac Sodium [Voltaren 50 Mg Tablet.Dr] 50 mg PO BID #20 tablet. Referrals: JESSY CROFT MD [ACTIVE STAFF] - Follow up as needed
[2019-11-06 12:26] LABS: ABSOLUTE BASOPHILS # (AUTO) 0.1 10^3/uL (0.0-0.2); ABSOLUTE LYMPHOCYTES (AUTO) 1.5 10^3/uL (0.5-4.7); ABSOLUTE MONOCYTES (AUTO) 0.3 10^3/uL (0.1-1.4); ABSOLUTE NEUT (AUTO) 10.1 10^3/uL (1.7-8.2); BASOPHILS % (AUTO) 0.5 % (0-2); EOSINOPHILS % (AUTO) 0.1 % (0-6); HEMATOCRIT 43.3 % (36.0-47.0); HEMOGLOBIN 14.7 g/dL (12.0-15.5); LYMPHOCYTES % (AUTO) 12.9 % (13-45); MEAN CORPUSCULAR HEMOGLOBIN 29.4 pg (27.0-33.4); MEAN CORPUSCULAR VOLUME 86 fl (80-97); MONOCYTES % (AUTO) 2.5 % (3-13); PLATELET COUNT 344 10^3/uL (150-450); RED BLOOD COUNT 5.01 10^6/uL (3.72-5.28); RED CELL DISTRIBUTION WIDTH 13.8 % (11.5-14.0); TOTAL CELLS COUNTED % (AUTO) 100 %
[2019-11-06 12:40] LABS: BACTERIA (WET MOUNT) 4+ BACTERIA SEEN; EPITHELIALS (WET MOUNT) 3+ EPITHELIALS SEEN; RBCS (WET MOUNT) NO RBCS SEEN; T.VAGINALIS (WET MOUNT) NO TRICHOMONAS SEEN; WBCS (WET MOUNT) 2+ WBCS SEEN; YEAST (WET MOUNT) NO YEAST SEEN
[2019-11-06 12:54] LABS: ALBUMIN 5.6 g/dL (3.5-5.0); ALKALINE PHOSPHATASE 80 U/L (38-126); ANION GAP 10 (5-19); ASPARTATE AMINO TRANSFERASE 23 U/L (14-36); BILIRUBIN,TOTAL 0.6 mg/dL (0.2-1.3); BLOOD UREA NITROGEN 9 mg/dL (7-20); CALCIUM 10.3 mg/dL (8.4-10.2); CARBON DIOXIDE 27 mmol/L (22-30); CHLORIDE 104 mmol/L (98-107); GLUCOSE 106 mg/dL (75-110); POTASSIUM 4.7 mmol/L (3.6-5.0); TOTAL PROTEIN 9.3 g/dL (6.3-8.2)
[2019-11-06 12:56] LABS: APPEARANCE,URINE CLEAR; BILIRUBIN,URINE NEGATIVE (NEGATIVE); COLOR,URINE YELLOW; GLUCOSE, URINE NEGATIVE (NEGATIVE); KETONES,URINE NEGATIVE (NEGATIVE); LEUKOCYTE ESTERASE,URINE NEGATIVE (NEGATIVE); NITRITE,URINE NEGATIVE (NEGATIVE); PROTEIN,URINE NEGATIVE (NEGATIVE); URINE SPECIFIC GRAVITY 1.016; UROBILINOGEN,URINE NEGATIVE mg/dL (<2.0)
--- NOTE | 2019-11-06 13:04 | RADIOLOGY REPORT (SQ) ---
EXAM DESCRIPTION: U/S NON OB PEL TV W/DOPPLER IMAGES COMPLETED DATE/TIME: 11/06/2019 12:47 pm REASON FOR STUDY: left pelvic pain recent LEEP COMPARISON: 03/16/2017 TECHNIQUE: Dynamic and static grayscale images acquired of the pelvis via transvaginal approach and recorded on PACS. Additional selected color Doppler and spectral images recorded. LIMITATIONS: None. FINDINGS: UTERUS: Contour normal. No mass. ENDOMETRIAL STRIPE: No focal or generalized thickening. No masses. CERVIX: 2.3 cm. No nabothian cysts. RIGHT OVARY AND DOPPLER: Normal size. No worrisome masses. Normal arterial vascular flow without evid ence for torsion. LEFT OVARY AND DOPPLER: Normal size. No worrisome masses. Normal arterial vascular flow without evide nce for torsion. FREE FLUID: None noted. OTHER: No other significant finding. MEASUREMENTS: UTERUS: 7.8 x 3.9 x 4.1 cm. ENDOMETRIAL STRIPE: 3.4 mm. RIGHT OVARY: 3.1 x 2.6 x 2 cm. LEFT OVARY: 2.7 x 2.1 x 1.8 cm. IMPRESSION: NORMAL TRANSVAGINAL PELVIC ULTRASOUND. TECHNICAL DOCUMENTATION: JOB ID: [id number] 2010 [employer]- All Rights Reserved Rev-10/08 Reading location - IP/workstation name: [email or web address]
[2019-11-06 14:11] LABS: CHLAM PCR NOT DETECTED (NOT DETECT)
--- NOTE | 2019-11-06 15:25 | RADIOLOGY REPORT (SQ) ---
EXAM DESCRIPTION: CT ABD/PELVIS WITH IV ONLY IMAGES COMPLETED DATE/TIME: 11/06/2019 2:56 pm REASON FOR STUDY: LLQ pain COMPARISON: Pelvic ultrasound examination dated 11/06/2019. TECHNIQUE: CT scan of the abdomen and pelvis performed using helical scanning technique with dynamic intravenous contrast injection. No oral contrast. Images reviewed with lung, soft tissue, and bone windows. Reconstructed coronal and sagittal MPR images reviewed. Delayed images for evaluation of the urinary system also acquired. All images stored on PACS. All CT scanners at this facility use dose modulation, iterative reconstruction, and/or weight based d osing when appropriate to reduce radiation dose to as low as reasonably achievable (ALARA). [facility]: Dose Right [facility]: CareDose [facility]: Dose Right [facility]: Teradose 4D [facility]: CultureAlley CONTRAST TYPE AND DOSE: 73 ml Omnipaque 350 RENAL FUNCTION: Creatinine -0.61 BUN=9 RADIATION DOSE: CT Rad equipment meets quality standard of care and radiation dose reduction techniq ues were employed. CTDIvol: 5.7 - 7.4 mGy. DLP: 669 mGy-cm.. LIMITATIONS: None. FINDINGS: LOWER CHEST: No significant findings. No nodules or infiltrates. LIVER: Normal size. No masses. No dilated ducts. The hepatic and portal veins are patent. SPLEEN: Normal size. No focal lesions. PANCREAS: No masses. No significant calcifications. No adjacent inflammation or peripancreatic fluid collections. Pancreatic duct not dilated. GALLBLADDER: No identified stones by CT criteria. No inflammatory changes to suggest cholecystitis. ADRENAL GLANDS: No significant masses or asymmetry. RIGHT KIDNEY AND URETER: Right renal cysts. No significant calcifications. No hydronephrosis or hy droureter. LEFT KIDNEY AND URETER: Left renal cysts. No significant calcifications. No hydronephrosis or hydr oureter. AORTA AND VESSELS: No aneurysm. No dissection. Renal arteries, SMA, celiac without stenosis. RETROPERITONEUM: No retroperitoneal adenopathy, hemorrhage or masses. BOWEL AND PERITONEAL CAVITY: No masses or inflammatory changes. No free fluid or peritoneal masses. APPENDIX: Normal. PELVIS: Bilateral tubal ligation clips. Bilateral small ovarian follicles. No free fluid. Normal bl adder. ABDOMINAL WALL: No masses. No hernias. BONES: No significant or acute findings. OTHER: Small nonenlarged right inguinal and bilateral superficial femoral triangle lymph nodes. IMPRESSION: 1. NO ACUTE FINDING IN THE ABDOMEN OR PELVIS. 2. Bilateral renal cysts. 3. Additional findings as above. TECHNICAL DOCUMENTATION: JOB ID: [id number] Quality ID # [id number]: Final reports with documentation of one or more dose reduction techniques (e.g., Au tomated exposure control, adjustment of the mA and/or kV according to patient size, use of iterative reconstruction technique) 2010 [employer]- All Rights Reserved Reading location - IP/workstation name: [email or web address]
[2019-11-06] MEDS ORDERED: KETOROLAC TROMETHAMINE INJ/PF 30 MG/1 ML SDV IV ONE (15:40)
[2019-11-06 16:26] VITALS: BP 110/72
== END 2019-11-06 16:28 | disposition home or self-care (01) ==
LOC: ER 11:13
DX: N76.0 Acute vaginitis (principal); B96.89 Other specified bacterial agents as the cause of diseases classified elsewhere; R10.2 Pelvic and perineal pain; R10.32 Left lower quadrant pain; R10.12 Left upper quadrant pain; R11.2 Nausea with vomiting, unspecified
CPT/HCPCS: 99284; 96374; 96375; 36415; 87210; 85025; 81025; 80053; 81001; 87491; 87591; 76830; 93976; 74177; J1885; J2270; J2405